=== PATIENT | male | born 1990 | race Caucasian/White ===

== ENCOUNTER 2017-11-16 05:27 | Emergency (ER) | payer OTHER, BC ==
--- NOTE | 2017-11-16 05:31 | PDOC ---
History of Present Illness - General Chief Complaint: Pain, Acute Stated Complaint: HEMMOROIDS, SWELLING BLEEDING Time Seen by Provider: 11/16/17 05:31 History Source: Patient Exam Limitations: No Limitations - History of Present Illness Initial Comments: 11/16/17 05:41 27M PMHx hemorrhoids with cc of discrete swelling near rectum with bleeding x 1 day. Able to defecate. No severe pain, came to ED mostly because of the small amount of blood that he has been seeing in his underware. +hardened stools x today. No vomiting, no abd pain. No other complaints. Timing/Duration: 4-6 hours Severity: mild Past History - Past Medical History Allergies/Adverse Reactions: Allergies Allergy/AdvReac Type Severity Reaction Status Date / Time No Known Allergies Allergy Verified 11/16/17 05:28 Home Medications: Ambulatory Orders Docusate Sodium [Colace] 100 mg PO BID 30 Days #60 tab 11/16/17 Hydrocortisone/Pramoxine [Proctofoam-Hc Foam] 10 gm RC BID #1 foam 11/16/17 Polyethylene Glycol 3350 [Miralax (For Bowel Prep) -] 17 gm PO DAILY #1 bottle 11/16/17 Other medical history: hemorrhoids - Suicide/Smoking/Psychosocial Hx Smoking History: Current every day smoker Have you smoked in the past 12 months: Yes Number of Cigarettes Smoked Daily: 10 'Breaking Loose' booklet given: 04/18/16 Hx Alcohol Use: No Drug/Substance Use Hx: No Substance Use Type: None Review of Systems - Review of Systems Able to Perform ROS?: Yes Constitutional: Yes: See HPI. No: Chills, Fever HEENTM: Yes: See HPI Respiratory: No: Cough, Shortness of Breath, SOB with Exertion, Productive cough Cardiac (ROS): No: Chest Pain, Edema ABD/GI: Yes: Constipated, Other (+ BMs with blook). No: Abdominal Distended : No: Hematuria, Incontinence, Testicular Mass Musculoskeletal: No: Back Pain Neurological: No: Headache, Numbness Psychiatric: No: Anxiety, Depression *Physical Exam - Physical Exam Respiratory/Chest: positive: Lungs Clear, Normal Breath Sounds Cardiovascular: positive: Regular Rhythm, Regular Rate, S1, S2 Rectal Exam: positive: other (+large soft nontender hemorrhoid with small area of clotted blood at rectum. no tenderness internally with digital rectal exam) Medical Decision Making - Medical Decision Making 11/16/17 05:48 Pt presenting with moderately large soft non-tender hemorrhoid - most likely prolapsed internal hemorrhoids vs thrombosed external hemorrhoid. Currently nontender, no need to drain hemorrhoid at this time. - close surgery f/u - within 48 hrs - sitz baths - Rx stool softeners - Rx proctofoam hcl *DC/Admit/Observation/Transfer Diagnosis at time of Disposition: Hemorrhoid - Discharge Dispostion Disposition: HOME Condition at time of disposition: Stable - Prescriptions Prescriptions: Docusate Sodium [Colace] 100 mg PO BID 30 Days #60 tab Hydrocortisone/Pramoxine [Proctofoam-Hc Foam] 10 gm RC BID #1 foam Polyethylene Glycol 3350 [Miralax (For Bowel Prep) -] 17 gm PO DAILY #1 bottle - Referrals Referrals: Faraz Concepcion MD [Staff Physician] - 24 hours (Pt with large hemorroids - most likely prolapsed internal. Not taut in the ER and nontender. Discharged with instructions for sitz baths, proctofoam hcl and stool softeners. ) - Patient Instructions Printed Discharge Instructions: Hemorrhoids, Smoking Cessation Additional Instructions: You were seen in the ER for hemorrhoids. Your hemorrhoids are quite large but don't require any drainage in the ER today. You have been referred to general surgery clinic with Dr. Concepcion. Please call Dr. Concepcion's office this morning to make an appointment within the next 2 days. The most important things to do to take care of (and prevent hemorrhoids): 1. sitz baths: sit in warm water, this will help decrease the inflammation and swelling 2. stool softeners: this will make your bowel movements softer to prevent the hemorrhoids from worsening and will make it easier to have a bowel movement while you have hemorrhoids 3. topical medications: a prescription for "proctofoam" was sent to your pharmacy - this medication is a foam which you insert into your rectal area to help decrease swelling and pain. Please make sure to call Dr. Concepcion tomorrow and return to the ER if your symptoms worsen. - Post Discharge Activity Forms/Work/School Notes: Back to Work
[2017-11-16 05:38] VITALS: PULSE 87; TEMP 97.6; BMI 29.4
[2017-11-16 06:06] VITALS: BP 132/98
== END 2017-11-16 06:23 | disposition home or self-care (01) ==
LOC: FER 05:27
DX: K64.9 Unspecified hemorrhoids (principal); F17.210 Nicotine dependence, cigarettes, uncomplicated
CPT/HCPCS: 99281-25

== ENCOUNTER 2018-12-08 01:48 | Emergency (ER) | payer BC, OTHER ==
[2018-12-08 01:58] VITALS: BP 132/91; PULSE 90; TEMP 97.7; BMI 29.4
--- NOTE | 2018-12-08 02:04 | PDOC ---
History of Present Illness - General Chief Complaint: Injury Stated Complaint: HEAD INJURY Time Seen by Provider: 12/08/18 01:58 History Source: Patient Exam Limitations: No Limitations - History of Present Illness Initial Comments: 12/08/18 02:04 b this is a 28-year-old male who comes in with his parents for evaluation status post fall. Patient was heavily intoxicated when he tripped going down the stairs and fell down hitting his nose. Patient said he did not pass out. Patient said that he denies any neck pain, face pain, extremity pain or any other injury. Patient did have some small amount of bleeding from his nose and there is also a scratch on the dorsum of the nose. Patient is otherwise healthy. Allergies: as per nursing notes Past Medical History: none Social history: Lives with family. No smoking. No alcohol. No illicit drugs. Surgical history: None General: No fevers or chills, no weakness, no weight loss HEENT: No change in vision. No sore throat,. No ear pain, fall hit nose CardioVascular: no chest discomfort. No shortness of breath Respiratory:No cough, or wheezing. Gastrointestinal: no nausea, vomiting, diarrhea or constipation, No rectal bleeding Genitourinary: No dysuria, hematuria, or frequency Musculoskeletal: No joint or muscle pain or swelling Neurologic: No headache, vertigo, dizziness or loss of consciousness Psychiatric: nor depression Skin: No rashes or easy bruising Endocrine: no increased thirst or abnormal weight change Allergic: no skin or latex allergy All other systems reviewed and normal\ GENERAL: The patient is awake, alert, and fully oriented, in no acute distress. HEAD: There is a small abrasion/laceration on the bridge of the nose with some swelling of the nose and bleeding from the nose bilaterally. There is no expanding hematoma of the nose EYES: Pupils equal, round and reactive to light, extraocular movements intact, sclera anicteric, conjunctiva clear. EXTREMITIES:atraumatic, Normal range of motion, no edema. NEUROLOGICAL: Normal speech, normal gait. PSYCH: Normal mood, normal affect. SKIN: Warm, Dry, normal turgor, no rashes or lesions noted. Procedure note laceration repair bridge and nose with Dermabond Laceration was cleaned and closed with Dermabond Assessment and plan: This is a 28-year-old male who comes in complaining of fell down some steps. Patient had a small laceration of the bridge of his nose was cleaned and closed with Dermabond. Patient otherwise had no tenderness on palpation throughout his body and was discharged home with his parents. Parents will be a patient tonight make sure he is okay. Past History - Past Medical History Allergies/Adverse Reactions: Allergies Allergy/AdvReac Type Severity Reaction Status Date / Time No Known Allergies Allergy Verified 11/16/17 05:28 Home Medications: Ambulatory Orders NK [No Known Home Medication] 12/08/18 COPD: No - Suicide/Smoking/Psychosocial Hx Smoking History: Unknown if ever smoked Have you smoked in the past 12 months: No Number of Cigarettes Smoked Daily: 10 Information on smoking cessation initiated: No 'Breaking Loose' booklet given: 04/18/16 Hx Alcohol Use: Yes Drug/Substance Use Hx: No Substance Use Type: None *Physical Exam - Vital Signs Last Vital Signs Temp Pulse Resp BP Pulse Ox 97.7 F 90 16 132/91 98 12/08/18 01:53 12/08/18 01:53 12/08/18 01:53 12/08/18 01:53 12/08/18 01:53 Moderate Sedation - Procedure Monitoring Vital Signs: Procedure Monitoring Vital Signs Temperature 97.7 F 12/08/18 01:53 Pulse Rate 90 12/08/18 01:53 Respiratory Rate 16 12/08/18 01:53 Blood Pressure 132/91 12/08/18 01:53 O2 Sat by Pulse Oximetry (%) 98 12/08/18 01:53 *DC/Admit/Observation/Transfer Diagnosis at time of Disposition: Intoxication, Nasal bleeding Fall Qualifiers: Encounter type: initial encounter Qualified Code(s): W19.XXXA - Unspecified fall, initial encounter Nasal laceration Qualifiers: Encounter type: initial encounter Qualified Code(s): S01.21XA - Laceration without foreign body of nose, initial encounter - Discharge Dispostion Disposition: HOME Condition at time of disposition: Stable - Referrals - Patient Instructions Printed Discharge Instructions: DI for Laceration Repair With Dermabond, DI for Closed Head Injury Additional Instructions: For the pain take Tylenol 1000 mg as often this 3-4 times a day if needed. Someone to check on you once tonight during the night. You should be arousable to their normal level of arousability for that time of the night. If you have been vomiting, had a seizure, or you are unable to be aroused or there is a change in your mental status call 911 go back to the nearest emergency department. Take Tylenol as needed for pain. Followup with your primary care doctor Return to the emergency department immediately with ANY new, persistent or worsening symptoms. Continue any medications as previously prescribed by your physician. You should follow up with your primary doctor as soon as possible regarding today's emergency department visit. . Please make sure your doctor reviews the results of your emergency evaluation. Thank you for coming to the Emergency Department today for your care. It was a pleasure to see you today. Please note that your evaluation is INCOMPLETE until you follow-up with your doctor. - Post Discharge Activity
== END 2018-12-08 02:16 | disposition home or self-care (01) ==
LOC: FER 01:48
PROC: 09QKXZZ Repair Nasal Mucosa and Soft Tissue, External Approach (ICD-10-PCS; principal; 2018-12-08)
DX: S01.21XA Laceration without foreign body of nose, initial encounter (principal); F10.120 Alcohol abuse with intoxication, uncomplicated; R04.0 Epistaxis; W10.9XXA Fall (on) (from) unspecified stairs and steps, initial encounter; Y93.89 Activity, other specified; Y92.89 Other specified places as the place of occurrence of the external cause
CPT/HCPCS: 99282-25

== ENCOUNTER 2024-06-13 18:55 | Emergency (ER) | payer OTHER ==
[2024-06-13 19:15] VITALS: BP 116/80; PULSE 92; RESP 18; TEMP 98.2; BMI 30.1
== END 2024-06-13 20:37 | disposition home or self-care (01) ==
LOC: JERFT 18:55 → JER 18:55 → JERFT 20:37
DX: S83.92XA Sprain of unspecified site of left knee, initial encounter (principal); X50.9XXA Other and unspecified overexertion or strenuous movements or postures, initial encounter
CPT/HCPCS: 73562-TC-LT-FY; 99283-25